=== PATIENT | male | born 1975 | race African-American/Black ===

== ENCOUNTER 2022-08-14 11:55 | Outpatient (RCR) | payer OTHER ==
[~2022-08-14 11:55] MED LIST: MUPIROCIN 2% OINT 22 GM TUBE ONE
== END 2022-08-17 ==
LOC: WCC 11:55
PROVIDERS: ATTEND Internal Medicine Infectious Disease
DX: S81.801A Unspecified open wound, right lower leg, initial encounter (principal); R60.0 Localized edema; R60.9 Edema, unspecified; I10 Essential (primary) hypertension; W01.10XA Fall on same level from slipping, tripping and stumbling with subsequent striking against unspecified object, initial encounter

== ENCOUNTER 2022-08-20 15:00 | Outpatient (RCR) | payer OTHER | END 2022-09-17 | LOC: WCC 15:00 | PROVIDERS: ATTEND Internal Medicine Infectious Disease | DX: S81.801A Unspecified open wound, right lower leg, initial encounter (principal); R60.0 Localized edema; R60.9 Edema, unspecified; I10 Essential (primary) hypertension; W01.10XA Fall on same level from slipping, tripping and stumbling with subsequent striking against unspecified object, initial encounter ==